=== PATIENT | male | born 1985 | race Caucasian/White ===

== ENCOUNTER 2021-01-08 21:57 | Emergency (ER) | payer SELFPAY ==
[~2021-01-08] VITALS: Ht 177.8 cm; Wt 90.7 kg
[2021-01-08] MEDS ORDERED: D5W/SOD CHL 0.45% 1,000 ML IV ONE (22:30)
[2021-01-08] MEDS ORDERED: KETOROLAC TROMETH 30 MG/ML 1ML VIAL IV ONE (22:30)
[2021-01-08] MEDS ORDERED: MORPHINE SULFATE 4 MG/ML SYR/VIAL IV ONE (22:30)
[2021-01-08] MEDS ORDERED: IOHEXOL 300 MG/ML 100ML BOTTLE IJ ONE (22:42)
[2021-01-08 23:03] LABS: Basophils # (auto) 0.1 10 ^3/uL (0-0.2); Basophils % (auto) 0.7 % (0.0-2.0); Eosinophils # (auto) 0.1 10 ^3/uL (0-0.8); Eosinophils % (auto) 1.5 % (0.0-7.0); Hematocrit 46.2 % (41.0-53.0); Hemoglobin 16.4 g/dL (13.5-17.5); Lymphocytes # (auto) 2.2 10 ^3/uL (0.4-5.4); Lymphocytes % (auto) 22.6 % (10.0-50.0); Mean Corpuscular Hemoglobin 31.7 pg (28.0-32.0); Mean Corpuscular Hgb Conc. 35.6 g/dL (32.0-36.0); Mean Corpuscular Volume 89.2 fL (80.0-100.0); Monocytes # (auto) 0.8 10 ^3/uL (0-1.3); Monocytes % (auto) 7.9 % (0.0-12.0); Neutrophils # (auto) 6.5 10 ^3/uL (1.6-8.6); Neutrophils % (auto) 67.3 % (37.0-80.0); Nucleated Red Blood Cells % 0.1 %; Red Blood Cells 5.18 10^6/uL (4.5-5.90); Red Cell Distribution Width 13.2 % (11.8-14.3); White Blood Cell 9.6 10^3/uL (4.4-10.8)
[2021-01-08 23:23] LABS: Calcium 8.5 mg/dL (8.5-10.1); Potassium 3.6 mmol/L (3.5-5.1)
[2021-01-08 23:25] LABS: BUN/Creatinine Ratio 11.2
[2021-01-08 23:38] LABS: Bilirubin, Total 0.6 mg/dL (0.2-1.0); Total Protein 7.5 g/dL (6.4-8.2)
[2021-01-09 00:55] VITALS: BP 117/75
== END 2021-01-09 01:28 | disposition home or self-care (01) ==
LOC: ER 22:01
DX: M54.5 Low back pain (principal)
CPT/HCPCS: 36415; 74177; 80053; 82550; 83605; 83690; 85025; 96361; 96374; 96375; 99285; J1885; J2270; Q9967; 96365

== ENCOUNTER 2021-02-25 19:07 | Emergency (ER) | payer SELFPAY ==
[~2021-02-25] VITALS: Ht 177.8 cm; Wt 86.2 kg
[2021-02-25] MEDS ORDERED: ONDANSETRON ODT 4 MG TAB PO ONE (22:15)
[2021-02-25] MEDS ORDERED: HYDROcodone-ACET 10/325MG TAB PO ONE (22:15)
[2021-02-25 22:41] VITALS: BP 133/89
== END 2021-02-25 22:42 | disposition home or self-care (01) ==
LOC: ER 19:08
DX: S39.012A Strain of muscle, fascia and tendon of lower back, initial encounter (principal); Z90.49 Acquired absence of other specified parts of digestive tract; X50.1XXA Overexertion from prolonged static or awkward postures, initial encounter; Y93.89 Activity, other specified; Y92.39 Other specified sports and athletic area as the place of occurrence of the external cause; Y99.8 Other external cause status
CPT/HCPCS: 72100; 99283; Q0162

== ENCOUNTER 2021-04-06 11:49 | Emergency (ER) | payer SELFPAY ==
[~2021-04-06] VITALS: Ht 177.8 cm; Wt 86.2 kg
[2021-04-06 11:49] VITALS: BP 153/98
== END 2021-04-06 17:04 | disposition left against medical advice (07) ==
LOC: ER 11:49
DX: N50.812 Left testicular pain (principal); Z53.21 Procedure and treatment not carried out due to patient leaving prior to being seen by health care provider
CPT/HCPCS: 76870

== ENCOUNTER 2021-05-30 07:50 | Emergency (ER) | payer SELFPAY ==
[~2021-05-30] VITALS: Ht 177.8 cm; Wt 86.2 kg
[2021-05-30 08:01] LABS: Urine WBC None Seen /hpf (0 - 3)
[2021-05-30 08:15] LABS: Urine Bacteria NONE SEEN /hpf (None Seen); Urine Blood TRACE /uL (Negative); Urine Specific Gravity 1.012 (1.001-1.035); Urine Sperm PRESENT /hpf (None Seen)
[2021-05-30 08:21] LABS: Basophils # (auto) 0.1 10 ^3/uL (0-0.2); Basophils % (auto) 0.6 % (0.0-2.0); Eosinophils # (auto) 0.1 10 ^3/uL (0-0.8); Eosinophils % (auto) 0.7 % (0.0-7.0); Hematocrit 45.9 % (41.0-53.0); Hemoglobin 16.1 g/dL (13.5-17.5); Lymphocytes # (auto) 1.5 10 ^3/uL (0.4-5.4); Mean Corpuscular Hemoglobin 31.4 pg (28.0-32.0); Mean Corpuscular Hgb Conc. 35.1 g/dL (32.0-36.0); Mean Corpuscular Volume 89.4 fL (80.0-100.0); Monocytes % (auto) 8.7 % (0.0-12.0); Red Blood Cells 5.14 10^6/uL (4.5-5.90); Red Cell Distribution Width 13.4 % (11.8-14.3); White Blood Cell 11.7 10^3/uL (4.4-10.8)
[2021-05-30 08:37] LABS: Potassium 3.7 mmol/L (3.5-5.1)
[2021-05-30 08:41] LABS: BUN/Creatinine Ratio 13.2; Bilirubin, Total 0.9 mg/dL (0.2-1.0); Total Protein 7.8 g/dL (6.4-8.2)
[2021-05-30 09:26] VITALS: BP 142/97
[2021-05-30] MEDS ORDERED: KETOROLAC TROMETH 60MG/2ML VIAL IM ONE (09:45)
== END 2021-05-30 10:29 | disposition home or self-care (01) ==
LOC: ER 07:50
DX: S76.211A Strain of adductor muscle, fascia and tendon of right thigh, initial encounter (principal); Z90.49 Acquired absence of other specified parts of digestive tract; X58.XXXA Exposure to other specified factors, initial encounter; Y93.89 Activity, other specified; Y92.89 Other specified places as the place of occurrence of the external cause; Y99.8 Other external cause status
CPT/HCPCS: 36415; 76870; 80053; 81001; 85025; 96372; 99284; J1885

== ENCOUNTER → 2023-01-21 | Emergency (ER) | payer MEDICAID ==
[~2023-01-21] VITALS: Ht 177.8 cm; Wt 91.0 kg
[2023-01-21 07:29] VITALS: BP 136/86
[2023-01-21 07:50] LABS: Basophils # (auto) 0.1 10 ^3/uL (0-0.2); Eosinophils # (auto) 0.4 10 ^3/uL (0-0.8); Eosinophils % (auto) 5.6 % (0.0-7.0); Hematocrit 45.2 % (41.0-53.0); Hemoglobin 15.7 g/dL (13.5-17.5); Lymphocytes % (auto) 38.8 % (10.0-50.0); Mean Corpuscular Hemoglobin 31.3 pg (28.0-32.0); Mean Corpuscular Hgb Conc. 34.6 g/dL (32.0-36.0); Mean Corpuscular Volume 90.3 fL (80.0-100.0); Monocytes # (auto) 0.7 10 ^3/uL (0-1.3); Monocytes % (auto) 9.7 % (0.0-12.0); Neutrophils # (auto) 3.4 10 ^3/uL (1.6-8.6); Neutrophils % (auto) 44.9 % (37.0-80.0); Nucleated Red Blood Cells % 0.2 %; Red Blood Cells 5.01 10^6/uL (4.5-5.90); Red Cell Distribution Width 12.9 % (11.8-14.3); White Blood Cell 7.7 10^3/uL (4.4-10.8)
[2023-01-21 08:00] LABS: Calcium 8.5 mg/dL (8.5-10.1); Magnesium 2.1 mg/dL (1.6-2.6); Potassium 3.2 mmol/L (3.5-5.1)
[2023-01-21 08:03] LABS: Bilirubin, Total 0.5 mg/dL (0.2-1.0)
[2023-01-21 08:10] LABS: Urine Bacteria NONE SEEN /hpf (None Seen); Urine Blood Negative /uL (Negative); Urine Specific Gravity 1.026 (1.001-1.035); Urine WBC 1 /hpf (0 - 3)
[2023-01-21 08:51] LABS: BUN/Creatinine Ratio 11.8 (10.0-20.0)
== END | disposition home or self-care (01) ==
LOC: ER 07:26
DX: R00.2 Palpitations (principal); R07.89 Other chest pain; M54.14 Radiculopathy, thoracic region; Z90.49 Acquired absence of other specified parts of digestive tract; Z79.899 Other long term (current) drug therapy
CPT/HCPCS: 36415; 71045; 80053; 81001; 83735; 84484; 85025; 93005

== ENCOUNTER 2023-03-17 21:47 | Emergency (ER) | payer MEDICAID ==
[~2023-03-17] VITALS: Ht 177.8 cm; Wt 86.4 kg
[2023-03-17 21:58] VITALS: BP 135/81
== END 2023-03-18 01:13 | disposition left against medical advice (07) ==
LOC: ER 21:52
DX: Z53.21 Procedure and treatment not carried out due to patient leaving prior to being seen by health care provider (principal); Z90.49 Acquired absence of other specified parts of digestive tract